=== PATIENT | male | born 2000 | race Caucasian/White ===

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

== ENCOUNTER 2022-09-17 13:23 | Emergency (ER) | payer OTHER ==
--- NOTE | 2022-09-17 13:48 | ERPHSYRPT ---
- History of Present Illness Time Seen by Provider: 09/17/22 13:48 Source: patient Exam Limitations: no limitations Physician History: This is a 22-year-old white male who drove himself into the emergency department because of 2-day history fever, cough, headache and body aches. Patient's spouse was diagnosed with COVID a few days ago. Patient does not have chest pain. He does not have shortness of breath. He has no abdominal pain. He has no nausea vomiting or diarrhea symptoms. Timing/Duration: day(s) (2), worse Fever Severity: mild (To moderate) Fever Therapy ORDER ENTRY CLERK: Ibuprofen (Approximately 2 hours prior to arrival) Associated Symptoms: cough, headache, muscle aches, sore throat, No stiff neck Allergies/Adverse Reactions: No Known Drug Allergies Allergy (Verified 09/17/22 14:08) Home Medications: No Home Meds [No Home Meds] 1 ea UD 10/06/14 [History] Hx Tetanus, Diphtheria Vaccination/Date Given: Yes Hx Influenza Vaccination/Date Given: No Hx Pneumococcal Vaccination/Date Given: No Travel Risk - International Travel Have you traveled outside of the country in past 3 weeks: No - Coronavirus Screening Are you exhibiting any of the following symptoms?: Yes Symptoms: Fever, Cough: New Onset, Headaches/Body Aches/Fatigue Close contact with a COVID-19 positive Pt in past 14-21 Days: Yes - Review of Systems Constitutional: Fever Eyes: No Symptoms Ears, Nose, & Throat: No Symptoms Respiratory: Cough Cardiac: No Symptoms Abdominal/Gastrointestinal: No Symptoms Genitourinary Symptoms: No Symptoms Musculoskeletal: Arthralgias, Myalgias Skin: No Symptoms Neurological: No Symptoms Psychological: No Symptoms Endocrine: No Symptoms Hematologic/Lymphatic: No Symptoms Immunological/Allergic: No Symptoms All Other Systems: Reviewed and Negative - Past Medical History Pertinent Past Medical History: No - Past Surgical History Past Surgical History: Yes Other Surgical History: tubes - Social History Smoking Status: Never smoker Exposure to second hand smoke: Yes Drug Use: none Patient Lives Alone: Yes - Nursing Vital Signs Nursing Vital Signs: Initial Vital Signs Temperature 100.1 F 09/17/22 13:58 Pulse Rate 114 H 09/17/22 13:58 Blood Pressure 151/81 09/17/22 13:58 O2 Sat by Pulse Oximetry 98 09/17/22 13:58 Pain Scale Pain Intensity 6 - Physical Exam General Appearance: no apparent distress, alert, anxiety Eye Exam: PERRL/EOMI, eyes nml inspection ENT Exam: normal ENT inspection, no apparent trauma, hearing grossly normal, TMs normal, pharynx normal Neck Exam: normal inspection, non-tender, supple, full range of motion Respiratory Exam: normal breath sounds, lungs clear, no respiratory distress, no accessory muscle use, No chest non-tender, No respiratory distress Cardiovascular/Chest Exam: tachycardia Gastrointestinal/Abdominal Exam: soft, non tender, no distention, no mass, no guarding, no ecchymosis, no organomegaly, no pulsatile mass, normal bowel sounds Rectal Exam: not done Extremity Exam: non-tender, normal range of motion, normal inspection, normal capillary refill, no calf tenderness, no pedal edema, pelvis stable Neurologic Exam: alert, oriented x 3, cooperative, 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, normal mood/affect, nml cerebellar function, nml station & gait, sensation nml Skin Exam: normal color, warm, dry Lymphatic: No adenopathy SpO2 Interpretation: normal O2 Delivery: Room Air - Course Nursing assessment & vital signs reviewed: Yes Ordered Tests: Medication Summary Discontinued Medications Generic Name Dose Route Start Last Admin Trade Name Stephanie PRN Reason Stop Dose Admin Acetaminophen 650 mg 09/17/22 14:55 09/17/22 15:21 Acetaminophen 325 Mg Tablet PO 09/17/22 14:56 650 mg STAT STA Administration Acetaminophen Confirm 09/17/22 15:20 Acetaminophen 325 Mg Tablet Administered 09/17/22 15:21 Dose 650 mg .ROUTE .[facility] ONE Lab/Rad Data: Laboratory Results 09/17/22 09/17/22 Range/Units 14:50 14:50 Influenza Type A Ag NEGATIVE (NEGATIVE) Influenza Type B Ag NEGATIVE (NEGATIVE) RSV (PCR) NEGATIVE (Negative) SARS-CoV-2 (PCR) POSITIVE A (NEGATIVE) Group A Strep Antibody NOT DETECTED (NEGATIVE) - Progress Progress: improved Counseled pt/family regarding: lab results, diagnosis, need for follow-up - Departure Departure Disposition: Home Clinical Impression: COVID-19 virus infection Condition: Stable Critical Care Time: No Referrals: GENET NAVAS FNP [NON-STAFF PHY W/O PRIVILEGES] - Follow up/PCP as directed Additional Instructions: Drink plenty of cool liquids. Use ibuprofen for fever control. Quarantine yourself per your employer's protocol. Take your medication as prescribed. Prescriptions: Hydrocodone/Acetaminophen [Hydrocodone-Acetamn 7.5-325/15] 10 ml PO Q8H PRN PRN #120 ml MDD 30 ml PRN Reason: Cough
[2022-09-17] MEDS ORDERED: TYLENOL 325 MG PO STA (14:55)
[2022-09-17 15:19] VITALS: BP 123/83; PULSE 102; O2SAT 96
[2022-09-17] MEDS ORDERED: TYLENOL 325 MG ONE (15:20)
[2022-09-17 15:37] LABS: INFLUENZA A NEGATIVE (NEGATIVE); INFLUENZA B NEGATIVE (NEGATIVE); RESPIRATORY SYNCTIAL VIRUS NEGATIVE (Negative)
[2022-09-17 15:41] LABS: SARS-CoV-2 Xpert Express POSITIVE (NEGATIVE)
== END 2022-09-17 16:15 | disposition home or self-care (01) ==
LOC: ED 13:23
DX: U07.1 COVID-19 (principal); R50.9 Fever, unspecified; R05.1 Acute cough; R51.9 Headache, unspecified; M79.10 Myalgia, unspecified site; Z79.891 Long term (current) use of opiate analgesic
CPT/HCPCS: 0241U; 87651; 99282; A9270-GY